=== PATIENT | female | born 1960 | race Caucasian/White ===

== ENCOUNTER 2017-12-11 01:19 | Inpatient (IN) | payer OTHER ==
[2017-12-11] MEDS ORDERED: GLUCOSE GEL 15 GRAM TUBE PO ×2 (02:30)
[2017-12-11] MEDS ORDERED: PENDING SANTYL ORDER FOR WOUND CARE XX (02:30)
[2017-12-11] MEDS ORDERED: DEXTROSE 50% 50 ML SYRINGE IV ×2 (02:30)
[2017-12-11] MEDS ORDERED: GLUCAGON 1 MG INJ IM (02:30)
[2017-12-11] MEDS ORDERED: GLUCOSE GEL 15 GRAM TUBE BUCCAL (02:30)
[2017-12-11] MEDS ORDERED: COLLAGENASE 5 GM (UD JAR) TOP (02:35)
[2017-12-11] MEDS: SOD CHLORIDE 0.9% 1,000 ML IV (02:38)
[2017-12-11] MEDS: COLLAGENASE 5 GM (UD JAR) TOP ×2 (02:52→08:22)
[2017-12-11] MEDS ORDERED: IBUPROFEN 800 MG TAB PO (03:00)
[2017-12-11] MEDS: PANTOPRAZOLE (EC) 40 MG TAB PO (05:30)
[2017-12-11 06:26] LABS: ADD MAN DIFF? NO
[2017-12-11 06:39] LABS: WHITE BLOOD COUNT 5.9 10^3/ul (4.8-10.8)
[2017-12-11 06:39] LABS: BASOPHILS % 0.7 % (0.0-2.0); EOSINOPHILS # 0.1 10^3/ul (0.0-0.5); HEMATOCRIT 33.1 % (37.0-47.0); HEMOGLOBIN 10.7 g/dl (12.0-16.0); LYMPHOCYTES # 1.8 10^3/ul (0.8-2.9); LYMPHOCYTES % 29.7 % (15.0-51.0); MEAN CORPUSCULAR HEMOGLOBIN 28.5 pg (29.0-33.0); MEAN CORPUSCULAR HGB CONC 32.3 g/dl (32.0-37.0); MEAN CORPUSCULAR VOLUME 88.3 fl (82.0-101.0); MEAN PLATELET VOLUME 12.1 fl (7.4-10.4); MONOCYTE # 0.6 10^3/ul (0.3-0.9); MONOCYTES % 9.3 % (0.0-11.0); NEUTROPHIL # 3.5 10^3/ul (1.6-7.5); NEUTROPHILS % 58.8 % (39.0-77.0); PLATELET COUNT 103 10^3/UL (140-415); RED BLOOD COUNT 3.75 10^6/ul (4.20-5.40); RED CELL DISTRIBUTION WIDTH 14.2 % (11.5-14.5)
[2017-12-11 06:57] LABS: ANION GAP 14 (8-16); BLOOD UREA NITROGEN 12 mg/dl (7-20); CARBON DIOXIDE 23 mmol/L (21-31); CHLORIDE 108 mmol/L (97-110); CHOL/HDL RATIO 3.1 RATIO; CHOLESTEROL 162 mg/dl (100-200); CREATININE 0.52 mg/dl (0.44-1.00); GLUCOSE 136 mg/dl (70-220); HDL CHOLESTEROL 51 mg/dl (35-98); LDL CHOLESTEROL,CALCULATED 74 mg/dl; POTASSIUM 4.3 mmol/L (3.5-5.1); SODIUM 141 mmol/L (135-144); TRIGLYCERIDES 186 mg/dl (0-149)
[2017-12-11 07:22] LABS: HEMOGLOBIN A1C 10.3 % (0-5.9)
[2017-12-11] MEDS: INSULIN ASPART [NOVOLOG] 3 ML PEN SC ×4 (08:00→20:47)
[2017-12-11] MEDS: metFORMIN 500 MG TAB PO ×2 (08:20→17:14)
[2017-12-11] MEDS: HYDROCHLOROTHIAZIDE 12.5 MG CAP PO (08:21)
[2017-12-11] MEDS: CHOLECALCIFEROL 1,000 UNIT TAB PO (08:21)
[2017-12-11] MEDS: TRIAMCINOLONE ACET 0.1% 15 GM CR TOP (08:21)
[2017-12-11] MEDS: LOSARTAN 50 MG TAB PO (08:21)
[2017-12-11] MEDS: LORATADINE 10 MG TAB PO (08:21)
[2017-12-11] MEDS: FLUTICASONE/VILANTEROL 100-25 INH (08:22)
[2017-12-11] MEDS ORDERED: AMARYL 4 MG XX (09:00)
[2017-12-11] MEDS ORDERED: FLUTICASONE/VILANTEROL 100-25 INH ×2 (09:00)
[2017-12-11] MEDS ORDERED: NICOTINE (14 MG/24 HR) PATCH TRANSDERM ×2 (11:00)
[2017-12-11] MEDS: NICOTINE (21 MG/24 HR) PATCH TRANSDERM (11:14)
[2017-12-11] MEDS ORDERED: VANCOMYCIN IV PER PHARMACY XX (11:30)
[2017-12-11] MEDS: LEVOFLOXACIN 750MG/D5W (PMX) 150 ML IVPB (13:37)
[2017-12-11] MEDS: VANCOMYCIN 1.25 GM in SOD CHLORIDE 0.9% 250 ML IVPB (15:22)
[2017-12-11] MEDS: MONTELUKAST 10 MG TAB PO (20:46)
[2017-12-11] MEDS: METOPROLOL 50 MG TAB PO (20:46)
[2017-12-11] MEDS: ATORVASTATIN 20 MG TAB PO (20:46)
[2017-12-11] MEDS: INSULIN GLARGINE [LANtus] 3 ML PEN SC (20:49)
[2017-12-12 00:08] LABS: ERYTHROCYTE SEDIMENTATION RATE 121 mm/Hr (0-30)
[2017-12-12] MEDS: ACCU-CHEK XX (01:04)
[2017-12-12] MEDS: VANCOMYCIN 1.25 GM in SOD CHLORIDE 0.9% 250 ML IVPB ×2 (02:52→14:13)
[2017-12-12 05:10] LABS: ADD MAN DIFF? NO
[2017-12-12 05:24] LABS: WHITE BLOOD COUNT 8.2 10^3/ul (4.8-10.8)
[2017-12-12 05:24] LABS: BASOPHIL # 0.1 10^3/ul (0.0-0.1); BASOPHILS % 0.7 % (0.0-2.0); EOSINOPHILS # 0.1 10^3/ul (0.0-0.5); EOSINOPHILS % 0.9 % (0.0-7.0); HEMATOCRIT 35.5 % (37.0-47.0); HEMOGLOBIN 11.5 g/dl (12.0-16.0); LYMPHOCYTES # 3.2 10^3/ul (0.8-2.9); LYMPHOCYTES % 38.9 % (15.0-51.0); MEAN CORPUSCULAR HEMOGLOBIN 28.5 pg (29.0-33.0); MEAN CORPUSCULAR HGB CONC 32.4 g/dl (32.0-37.0); MEAN CORPUSCULAR VOLUME 87.9 fl (82.0-101.0); MEAN PLATELET VOLUME 11.3 fl (7.4-10.4); MONOCYTE # 0.7 10^3/ul (0.3-0.9); MONOCYTES % 8.3 % (0.0-11.0); NEUTROPHIL # 4.2 10^3/ul (1.6-7.5); NEUTROPHILS % 50.7 % (39.0-77.0); PLATELET COUNT 123 10^3/UL (140-415); RED BLOOD COUNT 4.04 10^6/ul (4.20-5.40); RED CELL DISTRIBUTION WIDTH 14.2 % (11.5-14.5)
[2017-12-12 05:38] LABS: INR 1.14; PROTIME 14.8 Sec (11.9-14.9); PT RATIO 1.2
[2017-12-12 05:49] LABS: ANION GAP 15 (8-16); BLOOD UREA NITROGEN 10 mg/dl (7-20); CALCIUM 9.7 mg/dl (8.4-10.2); CARBON DIOXIDE 23 mmol/L (21-31); CHLORIDE 110 mmol/L (97-110); CREATININE 0.65 mg/dl (0.44-1.00); GLUCOSE 89 mg/dl (70-220); POTASSIUM 4.2 mmol/L (3.5-5.1); SODIUM 144 mmol/L (135-144)
[2017-12-12] MEDS: PANTOPRAZOLE (EC) 40 MG TAB PO (05:55)
[2017-12-12 06:26] LABS: POSITIVE DIFF @See below
[2017-12-12] MEDS: metFORMIN 500 MG TAB PO ×2 (07:55→17:08)
[2017-12-12] MEDS: INSULIN ASPART [NOVOLOG] 3 ML PEN SC ×4 (07:55→20:24)
[2017-12-12] MEDS: SODIUM HYPOCHLORITE 1/40% 1L IRRIG IRR ×2 (08:27→20:24)
[2017-12-12] MEDS: NICOTINE (21 MG/24 HR) PATCH TRANSDERM (08:27)
[2017-12-12] MEDS: ZINC SULFATE 220 MG CAP PO (08:27)
[2017-12-12] MEDS: FLUTICASONE/VILANTEROL 100-25 INH (08:27)
[2017-12-12] MEDS: CHOLECALCIFEROL 1,000 UNIT TAB PO (08:27)
[2017-12-12] MEDS: ASCORBIC ACID 500 MG TAB PO (08:27)
[2017-12-12] MEDS: LORATADINE 10 MG TAB PO (08:27)
[2017-12-12] MEDS: HYDROCHLOROTHIAZIDE 12.5 MG CAP PO (08:28)
[2017-12-12] MEDS: METOPROLOL 50 MG TAB PO ×2 (08:28→20:23)
[2017-12-12] MEDS: LOSARTAN 50 MG TAB PO (08:28)
[2017-12-12] MEDS: COLLAGENASE 5 GM (UD JAR) TOP (08:29)
[2017-12-12 10:17] LABS: BAND NEUTROPHILS #M 0.4 10^3/ul (0.0-0.6); BAND NEUTROPHILS % (M) 5 % (0-4); BASOPHIL #M 0.1 10^3/ul (0.0-0.0); BASOPHILS % (M) 2 % (0-2); EOSINOPHILS % (M) 1 % (0-7); LYMPHOCYTES #M 3.1 10^3/ul (0.8-2.9); LYMPHOCYTES % (M) 39 % (15-51); MONOCYTE #M 0.5 10^3/ul (0.3-0.9); MONOCYTES % (M) 7 % (0-11); PLATELET ESTIMATE DECREASED; POLYCHROMASIA 1+ (0-0); REACTIVE LYMPHOCYTES #M 0.8 10^3/ul (0.0-0.0); REACTIVE LYMPHOCYTES% (M) 10 % (0-0); SEGMENTED NEUTROPHILS (M) % 36 % (39-77); SMUDGE%M 10 % (0-0)
[2017-12-12] MEDS: LEVOFLOXACIN 750MG/D5W (PMX) 150 ML IVPB (12:00)
[2017-12-12] MEDS: MAGNESIUM SULFATE 4 GM/100 ML 100 ML IVPB (17:15)
[2017-12-12] MEDS: MONTELUKAST 10 MG TAB PO (20:23)
[2017-12-12] MEDS: ATORVASTATIN 20 MG TAB PO (20:23)
[2017-12-12] MEDS: INSULIN GLARGINE [LANtus] 3 ML PEN SC (20:27)
[2017-12-13] MEDS: ACCU-CHEK XX (00:04)
[2017-12-13] MEDS: VANCOMYCIN 1.25 GM in SOD CHLORIDE 0.9% 250 ML IVPB ×2 (03:09→14:26)
[2017-12-13 05:24] LABS: ADD MAN DIFF? NO
[2017-12-13 05:29] LABS: WHITE BLOOD COUNT 6.3 10^3/ul (4.8-10.8)
[2017-12-13 05:29] LABS: BASOPHIL # 0.1 10^3/ul (0.0-0.1); BASOPHILS % 0.8 % (0.0-2.0); EOSINOPHILS # 0.1 10^3/ul (0.0-0.5); EOSINOPHILS % 0.8 % (0.0-7.0); HEMOGLOBIN 11.3 g/dl (12.0-16.0); LYMPHOCYTES # 1.9 10^3/ul (0.8-2.9); LYMPHOCYTES % 30.4 % (15.0-51.0); MEAN CORPUSCULAR HEMOGLOBIN 28.9 pg (29.0-33.0); MEAN CORPUSCULAR HGB CONC 33.2 g/dl (32.0-37.0); MEAN PLATELET VOLUME 11.2 fl (7.4-10.4); MONOCYTE # 0.7 10^3/ul (0.3-0.9); MONOCYTES % 10.3 % (0.0-11.0); NEUTROPHIL # 3.6 10^3/ul (1.6-7.5); NEUTROPHILS % 57.4 % (39.0-77.0); PLATELET COUNT 115 10^3/UL (140-415); RED BLOOD COUNT 3.91 10^6/ul (4.20-5.40); RED CELL DISTRIBUTION WIDTH 14.1 % (11.5-14.5)
[2017-12-13 05:52] LABS: ANION GAP 17 (8-16); BLOOD UREA NITROGEN 12 mg/dl (7-20); CALCIUM 10.1 mg/dl (8.4-10.2); CARBON DIOXIDE 25 mmol/L (21-31); CHLORIDE 104 mmol/L (97-110); CREATININE 0.71 mg/dl (0.44-1.00); GLUCOSE 105 mg/dl (70-220); POTASSIUM 3.7 mmol/L (3.5-5.1); SODIUM 142 mmol/L (135-144)
[2017-12-13 06:02] LABS: MAGNESIUM 1.7 mg/dl (1.7-2.5)
[2017-12-13] MEDS: PANTOPRAZOLE (EC) 40 MG TAB PO (06:14)
[2017-12-13] MEDS: INSULIN ASPART [NOVOLOG] 3 ML PEN SC ×3 (07:52→17:02)
[2017-12-13] MEDS: metFORMIN 500 MG TAB PO ×2 (08:00→17:02)
[2017-12-13] MEDS: COLLAGENASE 5 GM (UD JAR) TOP (08:01)
[2017-12-13] MEDS: FLUTICASONE/VILANTEROL 100-25 INH (08:55)
[2017-12-13] MEDS: NICOTINE (21 MG/24 HR) PATCH TRANSDERM (08:55)
[2017-12-13] MEDS: LORATADINE 10 MG TAB PO (08:56)
[2017-12-13] MEDS: CHOLECALCIFEROL 1,000 UNIT TAB PO (08:56)
[2017-12-13] MEDS: ZINC SULFATE 220 MG CAP PO (08:56)
[2017-12-13] MEDS: ASCORBIC ACID 500 MG TAB PO (08:56)
[2017-12-13] MEDS: HYDROCHLOROTHIAZIDE 12.5 MG CAP PO (08:56)
[2017-12-13] MEDS: LOSARTAN 50 MG TAB PO (08:56)
[2017-12-13] MEDS: METOPROLOL 50 MG TAB PO (08:56)
[2017-12-13] MEDS: SODIUM HYPOCHLORITE 1/40% 1L IRRIG IRR (08:57)
== END 2017-12-13 18:55 | disposition home health service (06) | DRG 623 ==
LOC: PP2 01:19
PROVIDERS: Internal Medicine
PROC: 0JBQ0ZZ Excision of Right Foot Subcutaneous Tissue and Fascia, Open Approach (ICD-10-PCS; principal; 2017-12-11)
DX: E11.621 Type 2 diabetes mellitus with foot ulcer (principal); L03.115 Cellulitis of right lower limb; E11.42 Type 2 diabetes mellitus with diabetic polyneuropathy; E11.65 Type 2 diabetes mellitus with hyperglycemia; E78.2 Mixed hyperlipidemia; F17.200 Nicotine dependence, unspecified, uncomplicated; I10 Essential (primary) hypertension; J44.9 Chronic obstructive pulmonary disease, unspecified; K21.9 Gastro-esophageal reflux disease without esophagitis; L97.511 Non-pressure chronic ulcer of other part of right foot limited to breakdown of skin; B95.1 Streptococcus, group B, as the cause of diseases classified elsewhere; Z79.82 Long term (current) use of aspirin; Z79.4 Long term (current) use of insulin
CPT/HCPCS: 80048; 80061; 80202; 82962; 83036; 83605; 83735; 85025; 85610; 85651; 85730; 87070

== ENCOUNTER 2018-06-16 07:44 | Emergency (ER) | payer OTHER ==
[2018-06-16 08:52] LABS: ADD MAN DIFF? NO
[2018-06-16 08:54] LABS: BASOPHIL # 0.1 10^3/ul (0.0-0.1); BASOPHILS % 0.9 % (0.0-2.0); EOSINOPHILS # 0.1 10^3/ul (0.0-0.5); EOSINOPHILS % 1.6 % (0.0-7.0); HEMATOCRIT 33.8 % (37.0-47.0); HEMOGLOBIN 10.9 g/dl (12.0-16.0); LYMPHOCYTES # 1.8 10^3/ul (0.8-2.9); LYMPHOCYTES % 26.8 % (15.0-51.0); MEAN CORPUSCULAR HGB CONC 32.2 g/dl (32.0-37.0); MEAN CORPUSCULAR VOLUME 86.9 fl (82.0-101.0); MEAN PLATELET VOLUME 10.8 fl (7.4-10.4); MONOCYTE # 0.6 10^3/ul (0.3-0.9); MONOCYTES % 8.6 % (0.0-11.0); NEUTROPHIL # 4.2 10^3/ul (1.6-7.5); NEUTROPHILS % 61.8 % (39.0-77.0); PLATELET COUNT 123 10^3/UL (140-415); RED BLOOD COUNT 3.89 10^6/ul (4.20-5.40); RED CELL DISTRIBUTION WIDTH 13.8 % (11.5-14.5)
[2018-06-16 08:54] LABS: WHITE BLOOD COUNT 6.9 10^3/ul (4.8-10.8)
[2018-06-16 09:13] LABS: ALANINE AMINOTRANSFERASE 30 IU/L (13-69); ALBUMIN/GLOBULIN RATIO 1.21; ALKALINE PHOSPHATASE 194 IU/L (42-121); ANION GAP 13 (5-13); ASPARTATE AMINO TRANSFERASE 31 IU/L (15-46); BLOOD UREA NITROGEN 17 mg/dl (7-20); CALCIUM 9.5 mg/dl (8.4-10.2); CARBON DIOXIDE 25 mmol/L (21-31); CHLORIDE 102 mmol/L (97-110); CREATININE 0.59 mg/dl (0.44-1.00); Estimated GFR > 60 mL/min (>60); GLUCOSE 249 mg/dl (70-220); POTASSIUM 4.6 mmol/L (3.5-5.1); SODIUM 140 mmol/L (135-144); TOTAL PROTEIN 7.3 g/dl (6.1-8.1)
[2018-06-16 09:21] LABS: B-TYPE NATRIURETIC PEPTIDE 119 PG/ML (0-125)
== END 2018-06-16 10:12 | disposition home or self-care (01) ==
LOC: FTE 07:44
DX: L03.116 Cellulitis of left lower limb (principal); S80.812A Abrasion, left lower leg, initial encounter; E11.9 Type 2 diabetes mellitus without complications; I10 Essential (primary) hypertension; J45.909 Unspecified asthma, uncomplicated; X58.XXXA Exposure to other specified factors, initial encounter; Y92.9 Unspecified place or not applicable; Z79.82 Long term (current) use of aspirin; Z79.4 Long term (current) use of insulin
CPT/HCPCS: 36415; 71045; 80053; 83880; 85025; 93970; 99284-25

== ENCOUNTER 2018-12-14 07:48 | Emergency (ER) | payer OTHER ==
[2018-12-14] MEDS: CEFTRIAXONE 1 GM INJ IM (08:25)
[2018-12-14] MEDS: LIDOCAINE 1% (MPF) 5 ML VIAL INJ (08:25)
== END 2018-12-14 10:37 | disposition home or self-care (01) ==
LOC: FTE 10:37
DX: S92.425A Nondisplaced fracture of distal phalanx of left great toe, initial encounter for closed fracture (principal); I10 Essential (primary) hypertension; J45.909 Unspecified asthma, uncomplicated; X58.XXXA Exposure to other specified factors, initial encounter; Y92.9 Unspecified place or not applicable; Z79.82 Long term (current) use of aspirin; Z79.84 Long term (current) use of oral hypoglycemic drugs
CPT/HCPCS: 73660; 96372; 99284-25

== ENCOUNTER 2019-03-07 08:50 | Emergency (ER) | payer OTHER ==
[2019-03-07 09:54] LABS: ADD MAN DIFF? NO
[2019-03-07 09:57] LABS: BASOPHILS % 0.4 % (0.0-2.0); EOSINOPHILS # 0.1 10^3/ul (0.0-0.5); EOSINOPHILS % 0.6 % (0.0-7.0); HEMOGLOBIN 14.3 g/dl (12.0-16.0); LYMPHOCYTES # 2.1 10^3/ul (0.8-2.9); LYMPHOCYTES % 19.4 % (15.0-51.0); MEAN CORPUSCULAR HEMOGLOBIN 29.4 pg (29.0-33.0); MEAN CORPUSCULAR HGB CONC 33.3 g/dl (32.0-37.0); MEAN CORPUSCULAR VOLUME 88.3 fl (82.0-101.0); MEAN PLATELET VOLUME 10.6 fl (7.4-10.4); MONOCYTE # 1.1 10^3/ul (0.3-0.9); MONOCYTES % 10.3 % (0.0-11.0); NEUTROPHIL # 7.5 10^3/ul (1.6-7.5); NEUTROPHILS % 68.9 % (39.0-77.0); PLATELET COUNT 117 10^3/UL (140-415); RED BLOOD COUNT 4.87 10^6/ul (4.20-5.40)
[2019-03-07 09:57] LABS: WHITE BLOOD COUNT 10.9 10^3/ul (4.8-10.8)
[2019-03-07 10:13] LABS: ANION GAP 7 (5-13); BLOOD UREA NITROGEN 9 mg/dl (7-20); CALCIUM 9.2 mg/dl (8.4-10.2); CARBON DIOXIDE 27 mmol/L (21-31); CHLORIDE 102 mmol/L (97-110); CREATININE 0.63 mg/dl (0.44-1.00); Estimated GFR > 60 mL/min (>60); GLUCOSE 119 mg/dl (70-220); POTASSIUM 3.5 mmol/L (3.5-5.1); SODIUM 136 mmol/L (135-144)
[2019-03-07 10:15] LABS: INR 1.18; PROTIME 15.1 Sec (11.9-14.9); PT RATIO 1.2
== END 2019-03-07 10:30 | disposition home or self-care (01) ==
LOC: E/R 08:50
DX: I83.12 Varicose veins of left lower extremity with inflammation (principal); J45.909 Unspecified asthma, uncomplicated; I10 Essential (primary) hypertension; Z79.4 Long term (current) use of insulin; Z79.82 Long term (current) use of aspirin
CPT/HCPCS: 36415; 80048; 85025; 85610; 85730; 93971; 99284-25